=== PATIENT | female | born 1980 | race Caucasian/White ===

== ENCOUNTER 2020-02-23 00:19 | Emergency (ER) | payer BC, SELFPAY ==
--- NOTE | ~2020-02-23 | XR_ITS ---
EXAMINATION: XR knee RT min 4V DATE: 02/23/2020 00:55 INDICATION: Right knee pain TECHNIQUE: Four views of the right knee were obtained. COMPARISON: None. FINDINGS: Alignment is normal. No fracture or osteochondral lesion. Joint spaces are normal with no e rosions. No joint effusion/synovitis. Soft tissues are unremarkable. IMPRESSION: 1. No acute osseous abnormality. Reviewed, dictated and finalized at location A.
[2020-02-23 00:22] VITALS: BP 118/55; PULSE 70; RESP 20; TEMP 36.8; O2SAT 100
--- NOTE | 2020-02-23 01:08 | ED.LOWEXIN ---
HPI - Extremity Injury (Lower) General Chief Complaint: Extremity Injury, Lower Stated Complaint: R KNEE PAIN Time Seen by Provider: 02/23/20 00:47 History of Present Illness HPI Narrative: Patient is a 39-year-old female who presents ER with right knee pain. She was stepping off of the bed when her right knee gave out and she drove it into a corner on her bed. Sudden onset pain. Able to ambulate. No numbness or tingling. Has abrasion over her patella with tenderness. Range of motion intact. No other additional injury. Did not feel a pop or snap. Related Data Home Medications Medication Instructions Recorded Confirmed fluoxetine 20 mg PO 02/23/20 Allergies Allergy/AdvReac Type Severity Reaction Status Date / Time No Known Allergies Allergy Verified 02/23/20 00:24 Review of Systems Musculoskeletal: Musculoskeletal: Reports arthralgias, Denies joint swelling and Denies muscle cramps Neurologic: Denies focal weakness and Denies numbness PMFSH Past Medical History Medical History (Updated 02/23/20 @ 01:12 by Logan Bowers MD) Healthy female adult Surgical History Surgical History (Updated 02/23/20 @ 01:09 by Logan Bowers MD) No pertinent past surgical history Social History Social History (Updated 02/23/20 @ 01:10 by Logan Bowers MD) Alcohol use details: Occasional EtOH, 2 glasses of wine tonight. Exam Narrative: Exam Narrative: GENERAL: Well-appearing, well-nourished, and in no acute distress. EXTREMITIES: Abrasion over the right patella. Right knee ligamentously intact without effusion with negative Apley. No joint line tenderness of the right knee. Normal range of motion with normal strength. SKIN: Warm, dry, no rash. NEURO: No focal deficits. Alert and oriented x3. PSYCH: Normal mood and affect. Course Course Emergency Course: X-rays unremarkable. Discharge home. Vital Signs Vital signs: Vital Signs Temperature 98.3 F 02/23/20 00:22 Pulse Rate 70 02/23/20 00:22 Respiratory Rate 20 02/23/20 00:22 Blood Pressure 118/55 L 02/23/20 00:22 Pulse Oximetry 100 02/23/20 00:22 Temperature 98.3 F 02/23/20 00:22 Pulse Rate 70 02/23/20 00:22 Respiratory Rate 20 02/23/20 00:22 Blood Pressure 118/55 L 02/23/20 00:22 Pulse Oximetry 100 02/23/20 00:22 MDM - Extremity Injury (Lower) Imaging Data My impression: XR right knee: No acute process. Discharge Plan Discharge Clinical Impression: Contusion of knee Patient Disposition: Home, Self-Care Condition: Stable Instructions: Contusion in Adults (ED), Knee Pain (ED) Additional Instructions: Return the ER if you suffer new injury, you have chest pain shortness of breath, cannot keep down food or water, you have additional concerns. Prescriptions: No Action fluoxetine 20 mg capsule 20 mg PO RF: 0 Follow-up/Referrals: PHYSICIAN NOT ON STAFF,NONSTAFF [Primary Care Provider] - 1 Week
[2020-02-23 01:19] VITALS: BP 121/79; PULSE 88; RESP 19; TEMP 36.3; O2SAT 100
== END 2020-02-23 01:20 | disposition home or self-care (01) ==
PROVIDERS: Emergency Provider Emergency Medicine
DX: S80.01XA Contusion of right knee, initial encounter (principal); W06.XXXA Fall from bed, initial encounter
CPT/HCPCS: 73564; 99283

== ENCOUNTER 2021-12-16 00:59 | Day surgery (SDC) | payer OTHER, SELFPAY ==
[2021-12-09 14:31] VITALS: BMI 23.1
--- NOTE | 2021-12-09 14:32 | PC.NURSE ---
Report to the Outpatient Waiting Room, entrance under the green pavilion located off [facility], at time _1100_ on date ___12/16/21____. OR Time: __1300___. - You and your visitor will be asked a series of questions to screen for COVID 19 for your protection. - Only one visitor is allowed at this time. - The patient visitor is requested to leave or wait in car when not with patient. - A mask is required within the hospital. Patients may have clear liquids (water, carbonated beverages, clear teas, apple juice) until 3 hours prior to surgery with a maximum of 20 ounces. - No food from midnight until time of surgery - Infants may have breast milk until 4 hours before surgery, formula 6 hours prior to surgery. - Children will be allowed to drink immediately following surgery. If applicable, please bring a bottle or sippy cup to assist with drinking. Juice, water, soda, and popsicles are readily available. For infants on formula, please bring formula the day of surgery. Pacifiers are allowed. Take the following medications with a SIP of water the morning of surgery: ___NONE Medications to discontinue per physician NONE Date to take last dose Please no make-up, nail haitian, hairspray, perfume, deodorant, or body powder the day of surgery. No jewelry (including any body piercings) or valuables the day of surgery, leave them at home. Please take a shower or bath the night before, or the morning of, surgery with an antibacterial soap. Wear comfortable, loose fitting clothing. Children are encouraged to wear pajamas. - Jewelry must be removed prior to entering the operating room. Rings and piercings that are not removed may be cut off. - The hospital will not accept responsibility for valuables. - Please leave all valuables, including medications, at home the day of surgery. If you are going home after surgery, a licensed milk delivery driver must drive you home. - NO public transportation without another adult. - We recommend that an adult stay with you for 24 hours following discharge. - We also recommend that you do not drive, make important decision, drink alcoholic beverages, or take any drugs that were not prescribed by your health care provider for at least 24 hours after your discharge time. For Pediatric surgeries, we recommend two adults accompany the child home (only one inside the building at this time). Follow any additional instructions given to you from your surgeon. If you or anyone in your household have experienced Covid symptoms in the past week, please notify your surgeon or the nurse liaison at the phone number below for possible testing. Telephone instructions given to ____PATIENT and asked if any additional questions and then verbalized understanding. Patient advised to call surgeon office or pre surgery nurse liaison [phone] if any additional questions.
[2021-12-16] VITALS (8 sets, daily range): BP systolic 91–122; BP diastolic 43–66; PULSE 59–89; RESP 10–20; TEMP 36.4–36.6; O2SAT 100
[2021-12-16] MEDS: LACTATED RINGERS 1,000 ML 30 ML IV CONT ×2 (11:22→15:01)
[2021-12-16 11:33] LABS: Urine Cotinine NEGATIVE
--- NOTE | 2021-12-16 11:35 | WPDHPUPDATE1 ---
History and Physical Update Update Date/Time: 12/16/21 11:35 History and Physical has been reviewed, including an updated exam of the patient. There are NO changes in the patient's condition. Plan: Cervicoplasty (neck lift with submental scar) Risks, benefits, and alternatives have been discussed and questions answered. Patient agrees to proceed with procedure.
--- NOTE | 2021-12-16 11:46 | P.OP_ITS ---
Procedure Note - Detailed Date of Procedure 12/16/21 Pre-op Diagnosis skin laxity Post-op Diagnosis Same Procedure Performed Cervicoplasty Surgeon Bebeto Jones MD Description of Procedure Preoperatively the risks, benefits, alternatives were discussed in extensive detail. I want her to be very realistic about the risks involved as well as expectations. We discussed her choice of technique. Went over this again to make sure she is well informed before we can and cannot accomplish with this. She understands we are doing a submental scar was very honest limitations of this procedure. Answered all of her questions to her satisfaction today. She voiced a very clear understanding. Consent was obtained. Patient was marked in the preoperative holding area with her verification. She typically aspirating air placed supine on the operating table. Anesthesia provided by anesthesiology and prepped and draped in a standard sterile fashion. Surgical time-out was taken. Used a low volume tumescent with TXA, lidocaine, and epinephrine it along the planned treatment area. Fifteen blade used to make a submental incision. I continued dissection leaving a well-vascularized skin flap with good adiposity on it and elevated what was necessary. I incised well-healing the platysma muscle and elevated platysma muscle. This continued down to the level of the digastric and submandibular gland. There was minimal sub platysmal adiposity so care was taken not to resect this volume. The majority of adiposity was pre-platysmal. Care was taken to protect and not proceed between the digastrics. I released the inferior aspect of the platysma muscle broadly. 1% lidocaine with epi was used to anesthetize the submandibular gland. I incised the inferior portion of the submandibular gland capsule and cauterized as we went through the just a portion of the superficial lobe of the submandibular gland bilateral with no evidence of neurovascular injury. Vertical mattress 2-0 Vicryl was used to reapproximate the platysma muscle. I did place a drain which was brought out laterally and sutured in place with a 4- 0 Vicryl. Some persistent fullness after contouring and suction lipectomy was completed with a spatulated 2.1mm cannula, single hole deep. This was a small volume to contour inferior to mandibular border. Submental incision closed with 3-0 Monocryl, 4-0 Monocryl subcuticular. Steri- strip. Dressings were placed. She tolerated well. Estimated Blood Loss 20 Drains Yes (Duc) Packing No Pathology None sent Complications No immediate complications Condition Stable Disposition PACU
--- NOTE | 2021-12-16 12:11 | P.PNAN_ITS ---
Anes - Initial Pre Proc Eval Procedure: Operation Date: 12/16/21 13:00 Proposed Procedures p Direct Neck Lift - Bebeto Jones MD Date/Time: 12/16/21 12:11 Surgeon: Bebeto Jones MD Pre Op Diagnosis: skin laxity Patient Data Age: 41 Gender: F Height: 1.65 m Weight: 60.3 kg Last Vital Signs Temp 97.8 F 12/16/21 11:09 Pulse 70 12/16/21 11:09 Resp 18 12/16/21 11:09 BP 113/59 L 12/16/21 11:09 Allergies Allergy/AdvReac Type Severity Reaction Status Date / Time No Known Allergies Allergy Verified 12/16/21 11:29 Home Medications Medication Instructions Recorded Confirmed Type fluoxetine 20 mg capsule 20 mg PO DAILY 02/23/20 12/16/21 History docusate sodium 100 mg capsule 100 mg PO DAILY #14 caps 11/25/21 12/16/21 Rx (Colace) hydrocodone 5 mg-acetaminophen 325 1 tablet PO Q6H PRN pain #30 tabs 11/25/21 12/16/21 Rx mg tablet ondansetron HCl 4 mg tablet 4 mg PO Q8H #21 tabs 11/25/21 12/16/21 Rx albuterol sulfate 90 mcg/actuation 2 puff inhalation QID PRN 12/09/21 12/16/21 History aerosol inhaler Shortness Of Breath Laboratory Tests 12/16/21 11:08 Cotinine Negative Patient hx anesthesia problems: none Family hx anesthesia problems: none Results Review: All pre-operative results and documents have been reviewed as part of the pre- operative evaluation. [facility] Past Medical History Medical History (Updated 12/16/21 @ 12:09 by Cristofer Olivia DO) Anxiety Asthma Depression Surgical History Surgical History Hx of tonsillectomy No pertinent past surgical history Family History Family History Other Breast cancer Cancer Social History Social History Smoking status: Former smoker Additional smoking assessment comments: SOCIAL SMOKER FOR 12- 15 YS< 1/2 PK Alcohol intake: current Drinks per week: 1 Alcohol use details: Occasional EtOH, 2 glasses of wine tonight. Substance use: never Living arrangements: with family Quirino - Ayla Final PreProcedure Day of Procedure 12/16/21 12:11 Patient weight: normal Heart: regular rate and rhythm Lungs: clear to auscultation Airway: Mallampati scale class II Neurological: alert and oriented Last oral intake: >/= 8 hours ASA classification: II Emergent: no Anesthetic plan: proceed Anesthesia type and monitoring: general LMA and standard monitoring Results Review: All pre-operative results and documents have been reviewed as part of the pre- operative evaluation. Informed Consent: The patient's anesthetic plan and its attendant risks and benefits were discussed with the patient/family/POA. Questions were solicited and answers provided to the satisfaction of the patient/family/POA.
[2021-12-16] MEDS: ceFAZolin 2 GM/D5W 50 ML 2 GM/50 ML BAG IVPB (12:18)
[2021-12-16] MEDS: TRANEXAMIC ACID 1,000MG/ISO100 1,000 MG/100 ML BAG 200 MG IVPB (12:43)
[2021-12-16] MEDS: LIDO 1%/EPINEPHRINE 1:100,000 50 ML VIAL 30 ML INFILTRATE (13:40)
[2021-12-16] MEDS: TRANEXAMIC ACID 1,000 MG/10 ML AMPUL 1000 MG IV PUSH (14:38)
[2021-12-16] MEDS: ONDANSETRON INJ 4 MG/2 ML VIAL IV PUSH (15:55)
--- NOTE | 2021-12-16 16:01 | SUR.PHASEII ---
1600 RT at bedside to give pt a breathing treatment
[2021-12-16] MEDS: ACETAMINOPHEN 500 MG TABLET 1000 MG PO (16:30)
== END 2021-12-16 17:05 | disposition home or self-care (01) ==
PROVIDERS: Visit Provider Surgery Plastic and Reconstructive Surgery
PROC: (CPT 15819; principal; 2021-12-16 13:00)
DX: Z41.1 Encounter for cosmetic surgery (principal); L57.4 Cutis laxa senilis; Z79.51 Long term (current) use of inhaled steroids; F41.9 Anxiety disorder, unspecified; F32.A Depression, unspecified; J45.909 Unspecified asthma, uncomplicated; Z87.891 Personal history of nicotine dependence; Z79.899 Other long term (current) drug therapy
CPT/HCPCS: 15819; 80307; A9270; J0171; J0690; J1100; J2250; J2405; J2704; J3010; J7030; J7120

== ENCOUNTER 2023-03-24 14:48 | Outpatient (CLI) | payer BC, SELFPAY ==
--- NOTE | ~2023-03-24 | MM_ITS ---
EXAMINATION: MM screening maria m BI w janis HISTORY: Screening TECHNIQUE: Craniocaudal and mediolateral oblique 3-D tomosynthesis images were obtained and synthetic 2-D images were generated. CAD analysis was submitted and interpreted. COMPARISON: No prior mammogram is available for comparison at this institution. BREAST PARENCHYMAL COMPOSITION: The breasts are heterogeneously dense, which may obscure small masses FINDINGS: There is a focal asymmetry in the central aspect of the right breast posteriorly on CC view . There is a cluster of indeterminate calcifications in the upper central aspect of the left breast, middle third. IMPRESSION: 1. Focal right breast asymmetry centrally on CC view. Clustered indeterminate calcifications upper ce ntral left breast. 2. Additional mammographic views and possible breast ultrasound are recommended. BI-RADS Category 0: Incomplete: Needs additional imaging evaluation. Reviewed, dictated and finalized at location A. IMPRESSION: 1. Focal right breast asymmetry centrally on CC view. Clustered indeterminate c alcifications upper central left breast. 2. Additional mammographic views and possible breast ultrasound are recommended . BI-RADS Category 0: Incomplete: Needs additional imaging evaluation.
== END 2023-03-24 14:49 | disposition home or self-care (01) ==
LOC: ANHIMG 14:51
PROVIDERS: Visit Provider Physician Assistant
DX: Z12.31 Encounter for screening mammogram for malignant neoplasm of breast (principal); R92.8 Other abnormal and inconclusive findings on diagnostic imaging of breast
CPT/HCPCS: 77063; 77067

== ENCOUNTER 2023-05-05 11:54 | Outpatient (CLI) | payer BC, SELFPAY ==
--- NOTE | ~2023-05-05 | MM_ITS ---
EXAMINATION: MM diagnostic maria m BI w janis HISTORY: Right breast asymmetry and indeterminate left breast calcifications on screening mammogram TECHNIQUE: Additional 3-D tomosynthesis images of the breasts were performed and synthetic 2-D images were generated. Magnification views of the left breast are also obtained. CAD analysis was submitted and interpreted. COMPARISON: 03/24/2023 BREAST PARENCHYMAL COMPOSITION: The breasts are heterogeneously dense, which may obscure small masses . FINDINGS: Right breast: No persistent right breast asymmetry is identified with spot compression. Left breast: There are grouped calcifications in the middle third of the upper breast at the 12:00 lo cation, 3.5 cm from the nipple which may be dystrophic versus coarse heterogeneous in morphology. No associated mass is identified. IMPRESSION: 1. Probably benign left breast calcifications. 2. Recommend 6 month follow-up left diagnostic mammogram. BI-RADS category 3, probably benign findings. Reviewed, dictated and finalized at location A.
== END 2023-05-05 11:55 | disposition home or self-care (01) ==
LOC: ANHIMG 11:58
PROVIDERS: PCP Physician Assistant; Visit Provider Physician Assistant
DX: R92.8 Other abnormal and inconclusive findings on diagnostic imaging of breast (principal)
CPT/HCPCS: 77062; 77066; G0279